=== PATIENT | female | born 1945 | race Caucasian/White ===

== ENCOUNTER 2019-10-25 14:06 | Outpatient (CLI) | payer MEDICARE, OTHER ==
[2019-10-25] MEDS ORDERED: Iopamidol-370 76% 500 ML 1 ML ONE (14:38)
--- NOTE | 2019-10-25 17:01 | CT ---
CT ABDOMEN AND PELVIS WITH ORAL AND IV CONTRAST: Date: 10/25/2019 HISTORY: Abdominal pain. Irritable bowel. COMPARISON: None. FINDINGS: The lung bases are unremarkable. The patient is post cholecystectomy. The liver, spleen, pancreas, ad renal glands, and kidneys are unremarkable. No free air, free fluid, or lymphadenopathy seen in the a bdomen or pelvis. The small bowel loops are not abnormally dilated. There is fecal material in the co leti. A normal appendix is not seen. There are vascular calcifications without evidence of aneurysmal dilatation of the abdominal aorta. There are degenerative changes in the spine. There are postop lopez ges and metallic hardware in the right proximal femur. Uterus is present. There is prominence of the bernard of the pyloric antrum. IMPRESSION: 1. No acute process. 2. Prominence of the pyloric antrum. Evaluation with endoscopy is recommended. POS: OFF
== END 2019-10-25 14:07 | disposition home or self-care (01) ==
LOC: BICCT 14:06
PROVIDERS: ATTEND Physician Assistant Medical
DX: K58.1 Irritable bowel syndrome with constipation (principal); R10.30 Lower abdominal pain, unspecified
CPT/HCPCS: 74177; 82565; Q9967

== ENCOUNTER 2022-12-09 08:38 | Outpatient (CLI) | payer MEDICARE, OTHER ==
[2022-12-09] MEDS ORDERED: Iopamidol-370 76% 500 ML 1 ML ONE (13:12)
== END 2022-12-09 08:39 | disposition home or self-care (01) ==
LOC: BICCT 08:38
PROVIDERS: ATTEND Internal Medicine Gastroenterology
DX: K58.1 Irritable bowel syndrome with constipation (principal); R63.4 Abnormal weight loss; K86.81 Exocrine pancreatic insufficiency; I77.1 Stricture of artery; Q63.8 Other specified congenital malformations of kidney; N20.0 Calculus of kidney
CPT/HCPCS: 74170; 82565